=== PATIENT | female | born 1965 | race Asian ===

== ENCOUNTER 2018-01-20 18:04 | Emergency (ER) | payer OTHER ==
[~2018-01-20] VITALS: Ht 175.3 cm; Wt 76.7 kg
[2018-01-20 18:29] VITALS: BP 148/94; TEMP 99
== END 2018-01-20 18:43 | disposition home or self-care (01) ==
LOC: ED 18:04
DX: R51 Headache (principal); R04.0 Epistaxis; I10 Essential (primary) hypertension
CPT/HCPCS: 99281